=== PATIENT | female | born 1970 | race Caucasian/White ===

== ENCOUNTER 2019-05-18 14:21 | Emergency (ER) | payer OTHER ==
[2019-05-18 15:03] VITALS: BP 153/104
[2019-05-18] MEDS ORDERED: ACETAMINOPHEN 325 MG TABLET PO ONE (16:12)
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
== END 2019-05-18 17:40 | disposition home or self-care (01) ==
LOC: ER 14:21
DX: R51 Headache (principal); M54.2 Cervicalgia; M54.5 Low back pain; M25.561 Pain in right knee; R20.2 Paresthesia of skin; V49.40XA Driver injured in collision with unspecified motor vehicles in traffic accident, initial encounter; Y92.414 Local residential or business street as the place of occurrence of the external cause
CPT/HCPCS: 72110; 99283